=== PATIENT | female | born 1965 | race Caucasian/White ===

== ENCOUNTER → 2019-11-14 | Outpatient (CLI) | payer OTHER ==
[2019-11-15 07:06] LABS: HEPATITIS B SURFACE AG Negative (Negative); HEPATITIS C VIRUS ANTIBODY <0.1 s/co (0.0-0.9)
== END | disposition home or self-care (01) ==
LOC: LAB 10:53
PROVIDERS: Physician Assistant
DX: R94.5 Abnormal results of liver function studies (principal)

== ENCOUNTER → 2019-11-20 | Outpatient (CLI) | payer OTHER | END | disposition home or self-care (01) | LOC: MAMMO 14:55 | DX: Z12.31 Encounter for screening mammogram for malignant neoplasm of breast (principal) ==

== ENCOUNTER → 2025-01-15 | Outpatient (CLI) | payer OTHER | END | disposition home or self-care (01) | LOC: US 13:43 | PROVIDERS: ATTEND Nurse Practitioner Women's Health | DX: N63.23 Unspecified lump in the left breast, lower outer quadrant (principal); N63.20 Unspecified lump in the left breast, unspecified quadrant ==